=== PATIENT | female | born 1970 | race African-American/Black ===

== ENCOUNTER 2018-12-25 19:14 | Emergency (ER) | payer SELFPAY ==
[~2018-12-25] VITALS: Ht 157.5 cm; Wt 102.0 kg
[2018-12-25] MEDS ORDERED: IBUPROFEN 600MG TABLET PO ONE (20:30)
[2018-12-25] MEDS ORDERED: OXYCODONE HCL/ACETAMINOPHEN 5/325MG TABLET PO ONE (20:30)
[2018-12-25 21:30] VITALS: BP 140/87
== END 2018-12-25 21:33 | disposition home or self-care (01) ==
LOC: ER 19:14
DX: M54.2 Cervicalgia (principal); M54.9 Dorsalgia, unspecified; M25.512 Pain in left shoulder; M25.511 Pain in right shoulder; M79.602 Pain in left arm; M79.601 Pain in right arm; V49.50XA Passenger injured in collision with unspecified motor vehicles in traffic accident, initial encounter; Y93.89 Activity, other specified; Y92.89 Other specified places as the place of occurrence of the external cause
CPT/HCPCS: 99283